=== PATIENT | female | born 1975 | race Caucasian/White ===

== ENCOUNTER 2023-06-30 10:27 | Emergency (ER) | payer OTHER, SELFPAY ==
[2023-06-30 10:30] VITALS: BP 111/72; PULSE 80; RESP 16; TEMP 35.9; O2SAT 100; BMI 26.7
--- NOTE | 2023-06-30 11:05 | CT_ITS ---
HISTORY: facial trauma TECHNIQUE: Helically acquired images of the facial bones were obtained without contrast. A radiation dose optimization technique was used for this scan. 340 images. COMPARISON: None. FINDINGS: OSSEOUS STRUCTURES: No acute fracture or dislocation identified. SOFT TISSUES: No discrete fluid collections. PARANASAL SINUSES: Clear. VISUALIZED MASTOID AIR CELLS: Clear. ORBITAL CONTENTS: Both globes, extraocular muscles and retrobulbar fat appear unremarkable. CT/Sinus/Facial Bone IMPRESSION: No evidence of acute facial fracture. Electronically Signed: Mariya Espinosa MD at 12:14 EDT ,
--- NOTE | 2023-06-30 11:05 | CT_ITS ---
HISTORY: Head trauma. TECHNIQUE: Multiple axial images were obtained of the head without intravenous contrast. A radiation dose optimization technique was used for this scan. 246 images. COMPARISON: None. FINDINGS: BRAIN PARENCHYMA: No significant attenuation abnormality. No acute intra-axial hemorrhage. CSF SPACES: Cerebral ventricles, cortical sulci, and other extra-axial CSF spaces within normal limits in size for age with a cavum septum pellucidum incidentally noted. No midline shift or other significant mass effect. No acute extra-axial hemorrhage. OTHER: Intact calvarium. No significant air fluid levels in the paranasal sinuses or mastoid air cells. Unremarkable orbits. CT/Brain/Head without Contrast IMPRESSION: No acute intracranial process identified. Electronically Signed: Mariya Espinosa MD at 12:11 EDT ,
--- NOTE | 2023-06-30 11:24 | ED.VIS.FALL ---
HPI HPI - Fall History of Present Illness Chief Complaint: Fall Informant: patient Narrative Narrative: Patient is a 48-year-old female denies significant past medical history presenting for evaluation of facial injury and headache. Patient had a fall 2 days ago. She was walking down the stairs to her basement and was wearing heels. She that she was going to step on one of her dogs and so she moved suddenly which caused her to lose her balance and fall down 4-5 steps. She landed mostly on her right side but also hit her face on a metal baby gate. Denies any loss of conscious at the time but notes that initially after she was quite dizzy and nauseous. She sustained an injury to her lower lip. She notes that she is been quite sore especially over her knees, right wrist and lower back. She has had worsening headache which she describes as a throbbing sensation and she also feels that her eyes are irritated/swollen. This morning she woke up and just felt like she was ran over by a truck. She did take some ibuprofen with no sitting relief. [facility] but they told her to come to the ER for further evaluation in case there was a traumatic injury. No other complaints or concerns at this time. She is not on any blood thinners. PFSH PFSH Home Medications cyclobenzaprine 10 mg tablet 10 mg PO TID PRN Muscle Spasm #20 TABLETS 06/30/23 [Rx Last Taken Unknown] mupirocin 2 % topical ointment 1 applic topical BID 7 days #15 grams 06/30/23 [Rx Last Taken Unknown] Allergy/AdvReac Type Severity Reaction Status Date / Time No Known Allergies Allergy Verified 06/30/23 10:29 Social History Smoking Status: Never smoker ROS ROS ED Constitutional Constitutional ED: Denies chills or fever(s) Eyes Eyes: Reports other Details: eye irritation ; Denies change in vision ENT ENT ED: Reports other Details: lower lip pain and swelling ; Denies sore throat Cardiovascular Cardiovascular: Denies palpitations Respiratory/Chest Respiratory/Chest: Denies cough or dyspnea Gastrointestinal Gastrointestinal: Denies nausea or vomiting Musculoskeletal Musculoskeletal: Reports arthralgias, back pain and myalgias; Denies neck pain Integumentary Reports Abrasions Neurologic Neurologic: Reports headache(s); Denies paresthesias or weakness Psychiatric Psychiatric: Denies anxiety Hematologic/Lymphatic Hematologic/Lymphatic: Denies easy bleeding or easy bruising EXAM Physical Exam Const Vital Signs: 06/30/23 10:30 Temperature 96.7 F L Temperature Source Temporal Pulse Rate 80 Respiratory Rate 16 Blood Pressure 111/72 Blood Pressure Mean 85 Pulse Ox 100 Oxygen Delivery Method Room Air Positive well nourished and well developed General Appearance ED: well developed and NAD HEENT Reports normocephalic and TM's normal bilaterally HEENT Narrative: No hemotympanum or signs of a basilar skull fracture. Normal nares with no septal hematoma. Normal occlusion of the jaw. No loose teeth appreciated. Patient does have discomfort with trying to fully open her jaw. Soft tissue swelling noted of the bottom lip and abrasion noted on the chin below the lip. No involvement of the vermilion border. Negative for contusion or hematoma Eyes PERRL and EOMs intact bilaterally Neck full ROM and supple General: Negative for tenderness Chest Wall palpation of chest normal Resp normal respiratory effort Cardio regular rate, regular rhythm and no murmurs GI non-tender and non-distended Back/Spine no CVA tenderness Cervical Spine: Negative for cervical spine tenderness Thoracic Spine / Upper Back: Negative for thoracic spinal tenderness Lumbar Spine / Lower Back: paraspinal muscle tenderness; Negative for lumbar spinal tenderness Extremity Extremity Narrative: No deformity. Patient has mild tenderness palpation of bilateral knees as well as the right wrist. No effusion appreciated. No pinpoint bony tenderness. Neuro oriented x3, CN's II-XII intact bilaterally, moves all extremities, no focal motor deficits and no sensory deficits noted Psych mental status grossly normal and thought process normal Skin Skin Narrative: Scattered ecchymosis on the right anterior knee. Patient has punctate laceration of the chin with some slight drainage associated with it. No active bleeding. MDM MDM MDM Narrative Medical decision making narrative: Evaluated for headache, lip pain, dizziness and nausea associated with fall that occurred 2 days ago and head injury. She is no focal neurologic deficits. Differential includes concussion as well as traumatic brain injury/intracranial hemorrhage. She is having difficulty opening her mouth with a evidence of facial trauma around the lips so also concerned about a possible small jaw fracture. Will order CT of the brain as well as CT of the face. CT imaging does not show any acute process. Patient is given Tylenol in ER. She has a chin laceration but I suspect it actually was a through and through laceration from her lip through the outside. We will place her on mupirocin for this. There is some slight drainage however otherwise does not appear infected. Counseled alternating ibuprofen and Tylenol. Will be given a prescription for Flexeril as needed as she does have a lot of myalgias associated with the fall. I do not think she requires further imaging of her knee/wrist or other extremities for concerns of trauma. Is given return precautions peer encouraged follow[facility]. Patient verbalizes agreement understand this plan. Is given a close head injury/concussion instructions. Radiography Diagnostic Testing: Clinical Impression(s) from Imaging Studies Brain CT 06/30/23 11:05 IMPRESSION: No acute intracranial process identified. Electronically Signed: Mariya Espinosa MD at 12:11 EDT , Facial/Sinus 06/30/23 11:05 IMPRESSION: No evidence of acute facial fracture. Electronically Signed: Mariya Espinosa MD at 12:14 EDT , Discharge Plan Triage Chief Complaint: Fall ED Provider: Rhea Powell Dx/Rx/DC Orders Clinical Impression: Laceration of face with delay in treatment, Laceration of lip with delay in treatment, Closed head injury Instructions: ED Mechanical Fall, ED Head Injury (Adult), ED Laceration, Old: Not Sutured, ED Laceration, Lip or Mouth Prescriptions: New mupirocin 2 % ointment 1 applic topical BID 7 Days Qty: 15 0RF cyclobenzaprine 10 mg tablet 10 mg PO TID PRN (Reason: Muscle Spasm) Qty: 20 0RF Primary Care Provider: Keyon Hunt Referrals: Keyon Hunt, [employer] [Primary Care Provider] - Disposition Disposition: Home, Self Care
[2023-06-30] MEDS: Acetaminophen 325 MG Tablet 650 MG PO (11:27)
== END 2023-06-30 14:13 | disposition home or self-care (01) ==
PROVIDERS: Emergency Provider Emergency Medicine; PCP Nurse Practitioner Adult Health; Visit Provider Emergency Medicine
DX: S06.0X0A Concussion without loss of consciousness, initial encounter (principal); S01.511A Laceration without foreign body of lip, initial encounter; W10.9XXA Fall (on) (from) unspecified stairs and steps, initial encounter
CPT/HCPCS: 70450; 70486; 99282